=== PATIENT | female | born 1930 | race Caucasian/White ===

== ENCOUNTER 2017-07-11 16:06 | Emergency (ER) | payer OTHER ==
[~2017-07-11] VITALS: Ht 157.5 cm; Wt 59.0 kg
[~2017-07-11 16:06] MED LIST: AMO500 PO; ASPIR 8181 MG PO; BIA500 PO; BUSPIRONE HCL5 MG PO; CARVEDILOL12.5 M1 PO; COZAAR50 MG PO; ESCITALOPRAM10 M1 PO; FER300 PO; GLU500 PO; NAMENDA10 M2 PO; NAPROSYN500 MG PO; NOR5 PO; PRI20 PO; SIMVASTATIN20 M1 PO; THERAGRAN-M1 TA4 PO
[2017-07-11 19:57] VITALS: BP 165/80
== END 2017-07-11 20:10 | disposition home or self-care (01) ==
LOC: ED 16:06
DX: S01.01XA Laceration without foreign body of scalp, initial encounter (principal); S16.1XXA Strain of muscle, fascia and tendon at neck level, initial encounter; S29.012A Strain of muscle and tendon of back wall of thorax, initial encounter; W18.39XA Other fall on same level, initial encounter; Y93.89 Activity, other specified; Y92.89 Other specified places as the place of occurrence of the external cause; Y99.8 Other external cause status
CPT/HCPCS: 90715